=== PATIENT | male | born 1990 | race Caucasian/White ===

== ENCOUNTER 2018-02-19 14:33 | Emergency (ER) | payer MEDICAID, OTHER ==
[2018-02-19] MEDS ORDERED: SULFAMETHOX/TMP 800/160 MG 1 TAB PO ONE (15:31)
[2018-02-19] MEDS ORDERED: CEPHALEXIN 500 MG CAP PO ONE (15:31)
--- NOTE | 2018-02-19 15:33 | EDPHY ---
H & P Stated Complaint: IVDA use has wound to right thigh where he injected. Time Seen by Provider: 02/19/18 15:28 HPI/ROS: CHIEF COMPLAINT: Wound infection HISTORY OF PRESENT ILLNESS: Patient is a 27-year-old man with history of IV drug abuse and skin popping. He was discharged from assisted yesterday. He was being treated there with Keflex and Bactrim for several small ulceration wounds on his right lateral thigh that were previously drained in assisted. He was not discharged with antibiotics and is here requesting a prescription. His symptoms have not worsened. He has not had a fever. His wound is dressed Severity: Moderate Modifying factors: None REVIEW OF SYSTEMS: Constitutional: denies: chills, fever, recent illness, recent injury EENTM: denies: blurred vision, double vision, nose congestion Respiratory: denies: cough, shortness of breath Cardiac: denies: chest pain, irregular heart rate, lightheadedness, palpitations Gastrointestinal/Abdominal: denies: abdominal pain, diarrhea, nausea, vomiting, blood streaked stools Genitourinary: denies: dysuria, frequency, hematuria, pain Musculoskeletal: denies: joint pain, muscle pain Skin: See HPI Neurological: denies: headache, numbness, paresthesia, tingling, dizziness, weakness Hematologic/Lymphatic: denies: blood clots, easy bleeding, easy bruising Immunologic/allergic: denies: HIV/AIDS, transplant 10 systems reviewed and negative except as noted EXAM: GENERAL: Well-appearing, well-nourished and in no acute distress. HEAD: Atraumatic, normocephalic. EYES: Pupils equal round and reactive to light, extraocular movements intact, sclera anicteric, conjunctiva are normal. ENT: TMs normal, nares patent, oropharynx clear without exudates. Moist mucous membranes. NECK: Normal range of motion, supple without lymphadenopathy or JVD. LUNGS: Breath sounds clear to auscultation bilaterally and equal. No wheezes rales or rhonchi. HEART: Regular rate and rhythm without murmurs, rubs or gallops. ABDOMEN: Soft, nontender, normoactive bowel sounds. No guarding, no rebound. No masses appreciated. BACK: No CVA tenderness, no spinal tenderness, step-offs or deformities EXTREMITIES: Normal range of motion, no pitting or edema. No clubbing or cyanosis. NEUROLOGICAL: Cranial nerves II through XII grossly intact. Normal speech, normal gait. 5/5 strength, normal movement in all extremities, normal sensation , normal reflexes PSYCH: Normal mood, normal affect. SKIN: Multiple areas of bruising and scarring over legs due to history of skin popping. Right lateral thigh with several ulcerations that do coaless. Some purulence . No fluctuance. Slight warmth and erythema. Source: Patient Exam Limitations: No limitations - Personal History Current Tetanus Diphtheria and Acellular Pertussis (TDAP): Unsure - Medical/Surgical History Hx Asthma: No Hx Chronic Respiratory Disease: No Hx Diabetes: No Hx Cardiac Disease: No Hx Renal Disease: No Hx Cirrhosis: No Hx Alcoholism: No Hx HIV/AIDS: No Hx Splenectomy or Spleen Trauma: No - Family History Significant Family History: No pertinent family hx - Social History Smoking Status: Current every day smoker Alcohol Use: Sober Drug Use: None Constitutional: Initial Vital Signs Temperature (C) 36.6 C 02/19/18 14:40 Heart Rate 100 02/19/18 14:40 Respiratory Rate 16 02/19/18 14:40 Blood Pressure 141/80 H 02/19/18 14:40 O2 Sat (%) 97 02/19/18 14:40 O2 Delivery Mode Room Air Allergies/Adverse Reactions: No Known Allergies Allergy (Unverified 11/12/13 16:10) Home Medications: Medication Instructions Recorded Bactrim DS 02/19/18 Cephalexin [Keflex] 500 mg PO TID #21 cap 02/19/18 Keflex 02/19/18 Sulfamethox/Tmp 800/160 mg 1 tab PO BID #14 tab 02/19/18 [Bactrim Ds] Medical Decision Making ED Course/Re-evaluation: The patient is here for medication refill. I will refill his Keflex and Bactrim. His wound does appear slightly infected although is being managed. We discussed indications for returning if it worsens. Differential Diagnosis: Partial list of the Differential diagnosis considered include but were not limited to; skin infection, skin popping, substance abuse and although unlikely based on the history and physical exam, I also considered endocarditis , sepsis. I discussed these differential diagnoses and the plan with the patient as well as the usual and expected course. The patient understands that the diagnosis is provisional and that in medicine we are not always correct and that further workup is often warranted. Usual and customary warnings were given. All of the patient's questions were answered. The patient was instructed to return to the emergency department should the symptoms at all worsen or return, otherwise to followup with the physician as we discussed. - Data Points Medications Given: Discontinued Medications Cephalexin HCl (Keflex) 500 mg PO EDNOW ONE PRN Reason: Protocol Stop: 02/19/18 15:32 Last Admin: 02/19/18 15:47 Dose: 500 mg Trimethoprim/Sulfamethoxazole (Bactrim Ds) 1 ea PO EDNOW ONE PRN Reason: Protocol Stop: 02/19/18 15:32 Last Admin: 02/19/18 15:47 Dose: 1 ea Departure - Departure Disposition: Home, Routine, Self-Care Clinical Impression: Wound infection, IV drug abuse Condition: Good Instructions: Wound Infection (ED) Referrals: NONE *PRIMARY CARE P,. [Primary Care Provider] - As per Instructions [facility],. [Clinic] - As per Instructions Prescriptions: Cephalexin [Keflex] 500 mg PO TID #21 cap Sulfamethox/Tmp 800/160 mg [Bactrim Ds] 1 tab PO BID #14 tab
[2018-02-19 15:48] VITALS: BP 139/84
== END 2018-02-19 15:50 | disposition home or self-care (01) ==
DX: L08.9 Local infection of the skin and subcutaneous tissue, unspecified (principal); F19.10 Other psychoactive substance abuse, uncomplicated; F17.200 Nicotine dependence, unspecified, uncomplicated

== ENCOUNTER 2018-06-29 20:42 | Emergency (ER) | payer MEDICAID, OTHER ==
[2018-06-29 20:51] VITALS: BP 139/74
--- NOTE | 2018-06-29 22:09 | EDPHY ---
H & P Stated Complaint: R upper thigh wound rt heroin inj - Personal History Current Tetanus/Diphtheria Vaccine: Yes - Medical/Surgical History Hx Asthma: No Hx Chronic Respiratory Disease: No Hx Diabetes: No Hx Cardiac Disease: No Hx Renal Disease: No Hx Cirrhosis: No Hx Alcoholism: No Hx HIV/AIDS: No Hx Splenectomy or Spleen Trauma: No Other PMH: heroin use - Social History Smoking Status: Current every day smoker Time Seen by Provider: 06/29/18 21:47 HPI/ROS: CHIEF COMPLAINT: "I just need to be cleared so I can go to rehab tomorrow" HISTORY OF PRESENT ILLNESS: 27-year-old male history of IV heroin abuse states that he is planning on starting inpatient rehabilitation tomorrow and states that he needs a note from the ER that he is medically cleared to start rehab tomorrow because of a wound on his right proximal anterior thigh where he has been skin popping/injecting. He has been injecting through this site. This wound has been present for several weeks. He has sought medical attention for this. He is able to bear weight. He denies: Fever, chills, flu-like symptoms, chest pain, dyspnea, headache PRIMARY CARE PROVIDER: REVIEW OF SYSTEMS: 10 systems reviewed and negative with the exception of the elements mentioned in the history of present illness PAST MEDICAL & SURGICAL HISTORY: unknown tetanus. SOCIAL HISTORY: Positive for IV drug abuse. PHYSICAL EXAM (Prior to examination, patient consented to physical exam, hands were washed and my usual and customary physical exam procedures followed) 1) GENERAL: poorly kept, alert and oriented. Appears to be in no acute distress. Answering questions appropriately 2) HEAD: Normocephalic, atraumatic 3) HEENT: Pupils equal, round, reactive to light bilaterally. Sclera anicteric. 4) NECK: Full range of motion, no meningeal signs. 5) LUNGS: Clear auscultation bilaterally, no wheezes, no rhonchi, no retractions. 6) HEART: Regular rate and rhythm, no murmur, no heave, no gallop. 7) ABDOMEN: No guarding, no rebound, no focal tenderness, negative McBurney's, negative Roa's, negative Rovsing's, negative peritoneal sign, 8) MUSCULOSKELETAL: Right lower extremity: Edematous right lower extremity with multiple subacute wounds throughout his lower extremity. Of particular concern on the right proximal anterolateral aspect of his thigh he has a 12 cm x 8 cm open wound with visible adipose tissue, visible necrotic tissue . It is tender.. There is no crepitus. 9) BACK: No CVA tenderness, no midline vertebral tenderness, no fluctuance, no step-off, no obvious trauma, no visual or palpable abnormality. 10) SKIN: No rash, no petechiae. 11) Psychiatric: Patient is oriented X 3, there is no agitation. DIFFERENTIAL DIAGNOSIS: In no particular order including but not limited to necrotizing fasciitis, necrotizing myositis, cellulitis, chronic wound (Codie Flores) Constitutional: Initial Vital Signs Temperature (C) 37.1 C 06/29/18 20:48 Heart Rate 118 H 06/29/18 20:48 Respiratory Rate 18 06/29/18 20:48 Blood Pressure 139/74 H 06/29/18 20:48 O2 Sat (%) 97 06/29/18 20:48 O2 Delivery Mode Room Air Allergies/Adverse Reactions: No Known Allergies Allergy (Verified 06/30/18 09:44) Home Medications: Medication Instructions Recorded NK [No Known Home Meds] 06/29/18 Medical Decision Making ED Course/Re-evaluation: 10:25 p.m.: Patient informs me that his initial plan was to come to the ER to get medical screening prior to inpatient heroin detoxification tomorrow. I informed the patient that I cannot medically clear him at this time as I am concerned about the wound on his leg. I have recommended diagnostic studies and admission. This patient has been evaluated with serial examinations by both myself and Dr. Juan Silverio. I had multiple conversations with this patient and stressed the importance of admission to the hospital for evaluation of his right leg wound. His girlfriend came to his room and encouraged him to be admitted also however he declined admission. He states that he will more than likely return morning to be evaluated. I strongly recommended to the patient that he be admitted to the hospital. Informed the patient that In my professional opinion , I think he necessitates further evaluation. I have explained the risks of leaving AGAINST MEDICAL ADVICE, and patient was warned of possible consequences of leaving against medical advice, including, but not limited to, , permanent and chronic disability, permanent and chronic loss of income, need for medical terminologist care, loss of limb, and other situations and circumstances too numerous to mention herein. The patient informs me he fully understand these risks and warnings to their health and well-being by leaving the emergency department AGAINST MEDICAL ADVICE. He signed the AMA form, witnessed by ER computer forensics technician Barb. I think the patient has the capacity to fully understand these risks and has decision making capacity at this time I have offered ample opportunity to answer questions. I spoke with his girlfriend as well and she is encouraged him to stay however continues to decline. Patient has been informed that he is welcome to return to emergency department at any point for reevaluation. (Codie Flores) Departure - Departure Disposition: Against Medical Advice Clinical Impression: IV drug abuse Referrals: NONE *PRIMARY CARE P,. [Primary Care Provider] - As per Instructions
== END 2018-06-29 22:40 | disposition left against medical advice (07) ==
DX: F19.10 Other psychoactive substance abuse, uncomplicated (principal); L08.89 Other specified local infections of the skin and subcutaneous tissue

== ENCOUNTER 2018-06-30 09:41 | Emergency (ER) | payer MEDICAID ==
[~2018-06-30 09:41] MED LIST: SULFAMETHOX/TMP 800/160 MG 1 TAB PO SCH
--- NOTE | 2018-06-30 10:11 | EDPHY ---
H & P Stated Complaint: inf/wound r leg/heroin injection/used before he came to ed Time Seen by Provider: 06/30/18 09:49 HPI/ROS: CHIEF COMPLAINT: Worsening right leg wound HISTORY OF PRESENT ILLNESS: The patient is a chronic IV drug user who presents to the ED with a worsening wound on his right leg where he injects. The patient is noted several ulcerations to the area he continues to eject around it. There has now been the development of a large area of ulcerated skin approximately 10 cm x 8 cm. The patient reports pain to the area. He denies measured fever. The patient is interested in getting into a long-term detox facility for his narcotic dependence. The patient has been treated with antibiotics for small areas of cellulitis and the subcutaneous abscesses in the past. REVIEW OF SYSTEMS: A comprehensive 10 point review of systems is otherwise negative aside from elements mentioned in the history of present illness. Source: Patient Exam Limitations: No limitations - Personal History Current Tetanus Diphtheria and Acellular Pertussis (TDAP): Yes - Medical/Surgical History Hx Asthma: No Hx Chronic Respiratory Disease: No Hx Diabetes: No Hx Cardiac Disease: No Hx Renal Disease: No Hx Cirrhosis: No Hx Alcoholism: No Hx HIV/AIDS: No Hx Splenectomy or Spleen Trauma: No Other PMH: heroin use - Social History Smoking Status: Current every day smoker - Physical Exam Exam: General Appearance: Alert, no distress Eyes: Pupils equal and round no pallor or injection ENT, Mouth: Mucous membranes moist Respiratory: There are no retractions, lungs are clear to auscultation Cardiovascular: Regular rate and rhythm Gastrointestinal: Abdomen is soft and nontender, no masses, bowel sounds normal Neurological: 5/5 strength noted all 4 extremities Skin: Warm and dry, no rashes Musculoskeletal: 10 x 20 cm area of ulceration noted to the right anterior thigh with surrounding cellulitis, minimal tenderness to palpation in the area, no fluctuance Extremities: symmetrical, full range of motion Constitutional: Initial Vital Signs Temperature (C) 36.5 C 06/30/18 09:44 Heart Rate 90 06/30/18 09:44 Respiratory Rate 18 06/30/18 09:44 Blood Pressure 134/81 H 06/30/18 09:44 O2 Sat (%) 92 06/30/18 09:44 O2 Delivery Mode Room Air Allergies/Adverse Reactions: No Known Allergies Allergy (Verified 06/30/18 09:44) Home Medications: Medication Instructions Recorded NK [No Known Home Meds] 06/29/18 Medical Decision Making - Diagnostics Imaging Results: Imaging Impressions Extremity CT 06/30/18 00:00 Impression: 1. No fluid collection or evidence of osteomyelitis. 2. Regional inflammation of the skin and subcutaneous tissues along the right lateral proximal thigh. 3. No hip effusion. Findings discussed with Emergency Department physician, Dr. Tha Borges, on , 14:02. ED Course/Re-evaluation: Patient presents to the ED with a erythematous ulceration noted to his right thigh secondary to injection drug use. Patient is nontoxic well-appearing. The patient has no fever leukocytosis or evidence of sepsis. Patient was taken for CT scan of the extremity which demonstrates no evidence of gas, abscess or myositis. Patient was seen in consultation by Dr. Quesada who felt oral antibiotics was appropriate. He would be happy to talk about doing a more formal debridement and excision of the patient's chronic wound once the patient maintain some period of sobriety. The patient will be discharged home with customary aftercare instructions and return precautions. Differential Diagnosis: Differential diagnosis considered includes myositis, abscess, cellulitis, necrotizing fasciitis - Data Points Laboratory Results: Laboratory Results 06/30/18 10:44 06/30/18 10:44 Microbiology Results: MICROBIOLOGY 06/30/18 10:44 Blood Blood Culture - Preliminary 06/30/18 10:44 Blood Blood Panel (PCR) - Final Staph Coagulase Negative Departure - Departure Disposition: Home, Routine, Self-Care Clinical Impression: Cellulitis of leg Condition: Good Instructions: Cellulitis (ED) Additional Instructions: 1. Take antibiotics as directed. 2. Return to the ED for markedly worsening symptoms or other concerns. Referrals: NONE *PRIMARY CARE P,. [Primary Care Provider] - As per Instructions
[2018-06-30] MEDS ORDERED: IOPAMIDOL (ISOVUE-300) 100 ML BTL ONE (13:01)
[2018-06-30 16:56] LABS: PLATELET COUNT 346 10^3/uL (150-400)
[2018-06-30 19:06] VITALS: BP 125/78
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
--- NOTE | 2018-07-01 12:46 | ASMTCMCOM ---
CM Note CM Note Notes: Case Management asked to MAP Bactrim prescription for patient. [facility] reviewed and met with patient and his girlfriend. Patient (and girlfriend) are open about their heroin addiction and tell this CM that they are both "going to rehab tomorrow". Patient states that he is going to a court mandated treatment center in [place], and his girlfriend is going to [facility] in [place]. I have stressed the importance of patient taking all of his medication (Bactrim) as prescribed and suggested that he take a probiotic as well if can. 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 High risk screen completed. Date Signed: 07/01/2018 12:45 PM Electronically Signed By:Iveth Johnson RN
== END 2018-06-30 15:30 | disposition home or self-care (01) ==
DX: L03.116 Cellulitis of left lower limb (principal)
CPT/HCPCS: Q9967